=== PATIENT | male | born 1965 | race Caucasian/White ===

== ENCOUNTER 2019-11-04 07:30 | Outpatient (CLI) | payer OTHER ==
--- NOTE | 2019-11-04 11:11 | NM ---
Exam: Nuclear medicine HIDA scan HISTORY: Right upper quadrant pain. COMPARISON: None TECHNIQUE: Patient was ministered 5.2 mCi of technetium 99m mebrofenin intravenously. Patient was adm inistered 8 out of ensure 1 hour post injection to determine the gallbladder ejection fraction FINDINGS: Appropriate uptake of the radiotracer by the hepatic parenchyma. Appropriate excretion into the intrahepatic biliary system. Localization of radiotracer in the gallbladder is noted. Passage of radiotracer from the common bile duct into small bowel loops Gallbladder ejection fraction: 50% IMPRESSION: 1. No scintigraphic evidence of acute cholecystitis 2. 50% ejection fraction.
== END 2019-11-04 07:31 | disposition home or self-care (01) ==
LOC: NM 07:30
PROVIDERS: ATTEND Family Medicine
DX: R10.11 Right upper quadrant pain (principal)
CPT/HCPCS: 78227; A9537

== ENCOUNTER 2022-08-12 09:24 | Outpatient (CLI) | payer OTHER | END 2022-08-12 09:25 | disposition home or self-care (01) | LOC: TBSIIMAG 09:24 | PROVIDERS: ATTEND Neurological Surgery | DX: M43.12 Spondylolisthesis, cervical region (principal); Z98.890 Other specified postprocedural states | CPT/HCPCS: 72040 ==

== ENCOUNTER 2022-10-07 12:54 | Outpatient (CLI) | payer OTHER | END 2022-10-07 12:55 | disposition home or self-care (01) | LOC: TBSIIMAG 12:54 | PROVIDERS: ATTEND Neurological Surgery | DX: M54.2 Cervicalgia (principal); M47.812 Spondylosis without myelopathy or radiculopathy, cervical region; Z98.1 Arthrodesis status | CPT/HCPCS: 72040 ==